=== PATIENT | female | born 1975 | race Caucasian/White ===

== ENCOUNTER 2024-10-19 08:22 | Emergency (ER) | payer OTHER, SELFPAY ==
[2024-10-19 08:25] VITALS: BP 133/87
[2024-10-19 09:05] LABS: Urine Albumin 1+ (Neg - Trace); Urine Bilirubin Negative (Negative); Urine Character Clear (Clear); Urine Color Yellow; Urine Glucose Negative (Negative); Urine Ketone Negative (Negative); Urine Leukocyte 3+ (Negative); Urine Nitrite Negative (Negative); Urine Occult Blood 2+ (Negative); Urine Specific Gravity 1.015 (<1.030); Urine Urobilinogen Negative (Neg - 1+)
--- NOTE | 2024-10-19 10:05 | EDRN ---
Trace MICHAEL in room w/ pt.
--- NOTE | 2024-10-19 10:24 | ED.GENMED ---
History of Present Illness
General
Chief Complaint: Abdominal Symptoms
Source: patient
Exam Limitations: none
Time Seen by Provider: 10/19/24 10:02
History of Present Illness
History of Present Illness:
49-year-old female presents complaining of daily nausea decreased appetite and 10 pound weight loss over the past 3 months. She denies chest pain or shortness of breath. No fevers. States he started a new job and thinks this may be stress
related. She denies any change in her bowel habits. She is healthy otherwise. No other complaints at this time
Past History
Past History
ED Past Medical History: None
ED Past Surgical History: None
Social History
Tobacco: Non-smoker
Phy Exam
Physical Exam
Physical Exam:
General: Well-appearing female no acute respiratory distress
HEENT: Normocephalic atraumatic
Heart: Regular rate and rhythm no murmurs
Lungs: Clear no wheeze or rales
Abdomen is soft mildly tender in the epigastric region no guarding rebound normal bowel sounds
Extremities: No cyanosis
Course
Orders/Labs/Results
Orders:
Orders
10/19/24 08:44
Urinalysis Reflex To Culture Urgent
Date Specimen was Collected: 10/19/24
Time Specimen was Collected: 08:28
Urine Microscopic Reflex Cult Urgent
Urine Culture Urgent
CLARE Source: U
Specimen Description:
Date Specimen was Collected: 10/19/24
Time Specimen was Collected: 08:28
10/19/24 10:17
Test Result ONCE
10/19/24 10:18
CT Abd/pelvis W Iv Cont Urgent
Comment:
Reason For Exam: nausea, weight loss
10/19/24 10:55
Complete Blood Count/With Diff Urgent
Comprehensive Metabolic Panel Urgent
HCG, Serum Qualitative Screen Urgent
Lipase Urgent
10/19/24 13:13
0.9% Sodium Chloride 1000 ml [Nss] 1,000 ml IV BOLUS
Abnormal Lab Results
10/19/24 10/19/24
08:44 10:55
WBC 4.2 L 10^3/uL
(4.8-10.8)
MCH 31.8 H pg
(27.0-31.0)
Absolute Lymphs (auto) 1.1 L 10^3/uL
(1.2-3.4)
BUN 6 L mg/dl
(7-17)
Ur Occult Blood Reflex 2+ A
(Negative)
Leukocyte Esterase Rfl 3+ A
(Negative)
Urine Bacteria (Reflex) Moderate A
(Negative)
Urine Albumin (Reflex) 1+ A
(Neg - Trace)
10/19/24 10:55
10/19/24 10:55
Vital Signs
Initial and Last Documented VS:
Initial Vital Signs
Temp Pulse Resp BP Pulse Ox
98.0 F 90 16 133/87 98
10/19/24 08:25 10/19/24 08:25 10/19/24 08:25 10/19/24 08:25 10/19/24 08:25
Last Documented Vital Signs
Temp Pulse Resp BP Pulse Ox
98.0 F 67 16 115/69 100
10/19/24 08:25 10/19/24 13:00 10/19/24 13:00 10/19/24 13:00 10/19/24 13:00
MDM/Problems Addressed
Differential Diagnosis Includes:
Patient with decreased appetite nausea and weight loss. Consider gastritis versus viral illness versus stress response versus pancreatitis
Labs pending. Will CT of abdomen. Fluids ordered.
*Critical Care Note
Total Time (30-74mins, 75-104mins- exclusive of procedures): Not Applicable
Update Note
Update Note:
CT shows cholelithiasis but no sign of cholecystitis labs reviewed. Liver functions normal. Lipase normal. Urinalysis likely is contaminated. Patient has no urinary symptoms. Will not treat for UTI at this time. Recommend follow-up with
general surgery for gallstones. Stable for discharge
ED Attending Note
-
Portions of this chart may have been created with voice recognition software.� Occasional wrong word or��sound alike� substitutions may have occurred due to the inherent limitations of voice recognition software.
Discharge Plan
Departure
Patient Disposition: Home (Routine Discharge)
Date of Disposition: 10/19/24
Time of Disposition: 14:11
Patient with high blood pressure during this ER visit?: No
Discharge Problem:
Gall stones
Instructions: Gallstones
Prescriptions:
No Action
ibuprofen [Advil] 200 mg Tablet
200 mg PO Q6HPRN PRN (Reason: mild pain)
valerian 20 % Tincture
0 ea PO DAILYPRN PRN (Reason: dose based on anxiety/stress)
diindolylmethane-herbal drugs 50-50 mg Capsule
1 cap PO DAILY
Referrals:
Terence Clemons MD [Active] -
Vidhi Britt MD [Family Provider] -
Activity Restrictions/Additional Instructions:
Use Prilosec [id number]. Eat a bland diet. Return if worse otherwise follow-up with general surgery
Interventions
Interventions:
*Risk Screen - Suicide Last Done: 10/19/24 08:27
*General Assessment Last Done: 10/19/24 10:57
*Neglect/Abuse Screening Last Done: 10/19/24 08:27
ED- Fall Risk Assessment Last Done: 10/19/24 10:57
*ED COVID-19 Vaccine History Last Done: 10/19/24 10:57
VJ-Udfvss-Fektzfzhft Assessment Last Done: 10/19/24 10:59
Discharge Date and Time
Print Language: MONTENEGRIN
[2024-10-19 10:25] LABS: Urine Amorphous Seen; Urine Squamous Cell >30 /LPF (Few)
[2024-10-19 10:27] LABS: Urine Hyaline Cast 0-2 /LPF (0-2)
[2024-10-19 10:29] LABS: Urine Bacteria Moderate (Negative); Urine Red Blood Cell 0-2 /HPF (0-2)
[2024-10-19 10:57] VITALS: BMI 23.4
[2024-10-19 11:02] VITALS: BP 129/91
[2024-10-19 11:03] LABS: % Basophils 0.7 % (0-2); % Eosinophils 1.7 % (0-6); % Immature Granulocytes 0.2 % (0-0.5); % Monocytes 6.4 % (1.7-9.3); Absolute Eosinophils 0.1 10^3/uL (0-0.7); Absolute Lymphocytes 1.1 10^3/uL (1.2-3.4); Absolute Monocytes 0.3 10^3/uL (0.1-0.6); Absolute Neutrophils 2.8 10^3/uL (1.4-6.5); Hematocrit 41.9 % (37.0-47.0); Hemoglobin 14.2 g/dL (12.0-16.0); Mean Corp Hgb Conc. 33.9 g/dL (33.0-37.0); Mean Corpuscular Hgb 31.8 pg (27.0-31.0); Mean Corpuscular Volume 93.9 fL (81.0-99.0); Mean Platelet Volume 9.6 fL (7.4-10.4); Nucleated Red Blood Cells % 0 %; Platelet Count 314 10^3/uL (130-400); Red Blood Cell Count 4.46 10^6/uL (4.20-5.40); Red Cell Dist. Width 12.4 % (11.5-14.5); White Blood Cell Count 4.2 10^3/uL (4.8-10.8)
[2024-10-19 11:15] LABS: HCG, Serum Qualitative Screen Negative
[2024-10-19 11:19] LABS: ALT (SGPT) 19 U/L (0-35); AST (SGOT) 20 U/L (14-36); Albumin 4.4 g/dl (3.5-5.0); Alkaline Phosphatase 55 U/L (38-126); Blood Urea Nitrogen 6 mg/dl (7-17); Calcium 9.4 mg/dl (8.4-10.2); Carbon Dioxide 27 mmol/L (22-30); Chloride 105 mmol/L (98-107); Estimated Creatinine Clearance 87 ml/min; Glucose 97 mg/dl (70-99); Lipase 131 U/L (23-300); Potassium 4.5 mmol/L (3.5-5.1); Sodium 138 mmol/L (135-145); Total Bilirubin 0.8 mg/dl (0.2-1.3); Total Protein 7.1 g/dl (6.3-8.2); eGFR > 60.00
[2024-10-19 12:55] VITALS: BP 133/78
[2024-10-19 13:00] VITALS: BP 115/69
[2024-10-19] MEDS: NSS 1000 IV (13:25)
[2024-10-19 14:02] VITALS: BP 163/92
--- NOTE | 2024-10-19 14:02 | EDRN ---
Trace MICHAEL in room w/ pt.
[2024-10-19 14:09] VITALS: BP 148/94
== END 2024-10-19 14:34 | disposition home or self-care (01) ==
LOC: EMR 08:22
PROVIDERS: Emergency Medicine; Physician Assistant; EMERGENCY PHYSICIAN Emergency Medicine; FAMILY PHYSICIAN Internal Medicine
DX: K80.20 Calculus of gallbladder without cholecystitis without obstruction (principal); R63.8 Other symptoms and signs concerning food and fluid intake; R63.4 Abnormal weight loss
CPT/HCPCS: 96360; 99284; 74177; 80053; 81003; 81015; 83690; 84703; 85025; 87086; Q9967